=== PATIENT | female | born 1940 | race Caucasian/White ===

== ENCOUNTER 2019-05-28 05:34 | Inpatient (IN) | payer MEDICARE, BC ==
[2019-05-28] MEDS: LACTATED RINGER'S 1,000 ML IV (06:34)
[2019-05-28] MEDS: CEFAZOLIN 2 GM/50 ML (PMX) 50 ML IVPB (07:00)
[2019-05-28] MEDS ORDERED: THROMBIN 5000 UNIT (RECOTHROM) VIAL (07:24)
[2019-05-28] MEDS ORDERED: CEFAZOLIN 1 GM INJ ×2 (07:28→13:38)
[2019-05-28] MEDS ORDERED: PROPOFOL 200 MG INJ (07:45)
[2019-05-28] MEDS ORDERED: ROCURONIUM 50 MG INJ ×2 (07:45→09:37)
[2019-05-28] MEDS ORDERED: MIDAZOLAM 1 MG/ML 2 ML INJ ×2 (07:45→12:33)
[2019-05-28] MEDS ORDERED: DESFLURANE 15 MIN (07:45)
[2019-05-28] MEDS ORDERED: SUCCINYLCHOLINE CHLORIDE 100 MG/5 ML SYG IV (07:45)
[2019-05-28] MEDS ORDERED: LIDOCAINE 1% (MDV) 20 ML INJ ×2 (07:46→16:25)
[2019-05-28] MEDS ORDERED: LABETALOL HCL 20MG INJ (08:14)
[2019-05-28] MEDS ORDERED: FAMOTIDINE 20 MG INJ (08:31)
[2019-05-28] MEDS ORDERED: DEXAMETHASONE 4 MG/ML 5 ML INJ (08:31)
[2019-05-28] MEDS ORDERED: ONDANSETRON 4 MG INJ ×2 (08:31→16:36)
[2019-05-28] MEDS ORDERED: SCOPOLAMINE 1.5 MG PATCH (08:42)
[2019-05-28] MEDS: BUPIVACAINE 0.5%/EPI (SDV) 30 ML INJ (08:45)
[2019-05-28] MEDS: CEFAZOLIN 1 GM INJ (08:45)
[2019-05-28] MEDS: HEPARIN 1000 UNITS/ML 10 ML INJ (09:22)
[2019-05-28] MEDS: GELATIN SIZE 100 SPONGE (09:22)
[2019-05-28] MEDS: THROMBIN 5000 UNIT (RECOTHROM) VIAL ×2 (09:23→12:37)
[2019-05-28] MEDS: POLYMYXIN/BACITRACIN 1L IRRIG (09:23)
[2019-05-28] MEDS: HEMOSTATIC MATRIX SYG ZFS ×4 (09:24→15:58)
[2019-05-28] MEDS ORDERED: morphine 10 MG INJ (10:30)
[2019-05-28] MEDS ORDERED: THROMBIN 20,000 UNIT VIAL (14:07)
[2019-05-28] MEDS ORDERED: SUGAMMADEX SODIUM 200 MG/2 ML VIAL IV (14:10)
[2019-05-28] MEDS ORDERED: HYDROmorphONE 2 MG/ML SYG (14:10)
[2019-05-28] MEDS ORDERED: CA CHLORIDE 10% 10 ML SYRINGE (14:18)
[2019-05-28] MEDS: THROMBIN 20,000 UNIT VIAL (14:22)
[2019-05-28] MEDS ORDERED: FENTAnyl 50 MCG/ML VIAL (14:22)
[2019-05-28 15:04] LABS: IMMEDIATE SPIN CROSSMATCH 1 2
[2019-05-28] MEDS ORDERED: MEPERIDINE 25 MG INJ IV (17:00)
[2019-05-28] MEDS ORDERED: HYDROmorphONE 1 MG/5 ML IV SYRINGE IV ×2 (17:00)
[2019-05-28] MEDS ORDERED: ACETAMINOPHEN 325 MG TAB PO (17:30)
[2019-05-28] MEDS ORDERED: PROCHLORPERAZINE 10 MG TAB PO (17:30)
[2019-05-28] MEDS ORDERED: NACL 0.9% 3 ML SYG IV (17:30)
[2019-05-28] MEDS ORDERED: NALOXONE (0.4 MG/ML) INJ IV (17:30)
[2019-05-28] MEDS ORDERED: HYDROCODONE/APAP (5/325) TAB PO (17:30)
[2019-05-28] MEDS: hydrALAzine 20 MG INJ IV ×2 (17:48→18:18)
[2019-05-28] MEDS: HYDROmorphONE 0.2 MG/ML PCA IV (17:50)
[2019-05-28 18:05] LABS: HEMATOCRIT 39.7 % (37.0-47.0); HEMOGLOBIN 12.8 g/dl (12.0-16.0)
[2019-05-28 18:09] LABS: ADD UMIC YES; UR ASCORBIC ACID NEGATIVE (NEGATIVE); UR BILIRUBIN (Dip) NEGATIVE (NEGATIVE); UR BLOOD (Dip) NEGATIVE (NEGATIVE); UR CLARITY CLEAR (CLEAR); UR COLOR YELLOW (YELLOW); UR GLUCOSE (Dip) NEGATIVE (NEGATIVE); UR KETONES (Dip) NEGATIVE (NEGATIVE); UR LEUKOCYTE ESTERASE (Dip) NEGATIVE Leu/ul (NEGATIVE); UR NITRITE (Dip) NEGATIVE (NEGATIVE); UR RBC 4 /HPF (0-5); UR SPECIFIC GRAVITY (Dip) 1.013 (1.003-1.030); UR TOTAL PROTEIN (Dip) 2+ mg/dl (NEGATIVE); UR UROBILINOGEN (Dip) NEGATIVE (NEGATIVE); UR WBC 3 /HPF (0-5)
[2019-05-28] MEDS: LABETALOL HCL 20MG INJ IV ×3 (18:20→19:19)
[2019-05-28] MEDS: SOD CHLORIDE 0.45% 1,000 ML IV (18:29)
[2019-05-28] MEDS: CEFAZOLIN 1 GM/50 ML (PMX) 50 ML IVPB ×2 (18:29→23:41)
[2019-05-28] MEDS ORDERED: ZOLPIDEM 5 MG TAB PO (18:30)
[2019-05-28] MEDS: ONDANSETRON 4 MG INJ IV (18:58)
[2019-05-28] MEDS: METOCLOPRAMIDE 10 MG INJ IV (19:29)
[2019-05-28] MEDS: HYDROmorphONE 1 MG/5 ML IV SYRINGE IV (19:48)
[2019-05-28 20:14] LABS: ANION GAP 8 (5-13); BLOOD UREA NITROGEN 14 mg/dl (7-20); CALCIUM 8.6 mg/dl (8.4-10.2); CARBON DIOXIDE 21 mmol/L (21-31); CHLORIDE 109 mmol/L (97-110); GLUCOSE 212 mg/dl (70-220); POTASSIUM 4.4 mmol/L (3.5-5.1); SODIUM 138 mmol/L (135-144)
[2019-05-28] MEDS: ATORVASTATIN 40 MG TAB PO (22:35)
[2019-05-28] MEDS: POTASSIUM CHLORIDE (SR) 10 MEQ TAB PO (22:35)
[2019-05-28] MEDS: ACETAMINOPHEN 1000MG/100ML IV 100 ML IVPB (22:38)
[2019-05-29] MEDS: ONDANSETRON 4 MG INJ IV ×3 (00:26→17:04)
[2019-05-29] MEDS: SOD CHLORIDE 0.45% 1,000 ML IV ×2 (02:29→14:12)
[2019-05-29 05:19] LABS: HEMATOCRIT 35.2 % (37.0-47.0); HEMOGLOBIN 11.4 g/dl (12.0-16.0)
[2019-05-29] MEDS: PANTOPRAZOLE (EC) 40 MG TAB PO (05:19)
[2019-05-29] MEDS: CEFAZOLIN 1 GM/50 ML (PMX) 50 ML IVPB ×2 (05:20→11:53)
[2019-05-29 05:41] LABS: ANION GAP 6 (5-13); BLOOD UREA NITROGEN 19 mg/dl (7-20); CALCIUM 8.6 mg/dl (8.4-10.2); CARBON DIOXIDE 26 mmol/L (21-31); CHLORIDE 106 mmol/L (97-110); GLUCOSE 142 mg/dl (70-220); POTASSIUM 4.6 mmol/L (3.5-5.1); SODIUM 138 mmol/L (135-144)
[2019-05-29] MEDS: ACETAMINOPHEN 1000MG/100ML IV 100 ML IVPB ×2 (06:02→14:12)
[2019-05-29] MEDS: ESCITALOPRAM 10 MG TAB PO (09:00)
[2019-05-29] MEDS: MULTIVITAMINS THERAPEUTIC TAB PO (10:08)
[2019-05-29] MEDS: POTASSIUM CHLORIDE (SR) 10 MEQ TAB PO ×2 (10:09→20:32)
[2019-05-29] MEDS: HYDROCHLOROTHIAZIDE 25 MG TAB PO (10:10)
[2019-05-29] MEDS: MECLIZINE 25 MG TAB PO (11:54)
[2019-05-29] MEDS ORDERED: DIMENHYDRINATE 50 MG TAB PO ×3 (12:30→21:00)
[2019-05-29] MEDS ORDERED: MECLIZINE 25 MG TAB PO (14:30)
[2019-05-29] MEDS: HYDROCODONE/APAP (5/325) TAB PO ×2 (15:04→16:51)
[2019-05-29] MEDS ORDERED: DIMENHYDRINATE 50 MG PO (16:30)
[2019-05-29] MEDS ORDERED: OXYCODONE/ACETAMINOPHEN (5/325) TAB PO (18:30)
[2019-05-29] MEDS: HYDROmorphONE 0.5 MG/0.5 ML SYG IV ×2 (18:47→22:39)
[2019-05-29] MEDS: OXYCODONE/ACETAMINOPHEN (5/325) TAB PO (19:46)
[2019-05-29] MEDS: ATORVASTATIN 40 MG TAB PO (20:32)
[2019-05-29] MEDS ORDERED: DRAMAMINE PO (21:00)
[2019-05-30] MEDS: ONDANSETRON 4 MG INJ IV ×3 (01:00→15:58)
[2019-05-30] MEDS: OXYCODONE/ACETAMINOPHEN (5/325) TAB PO ×2 (01:00→05:42)
[2019-05-30] MEDS: SOD CHLORIDE 0.45% 1,000 ML IV ×5 (01:00→23:58)
[2019-05-30] MEDS: AL HYDROX/MG HYDROX/SIMETH 30 ML CUP PO (01:02)
[2019-05-30] MEDS: traZODone 50 MG TAB PO (02:08)
[2019-05-30] MEDS: HYDROmorphONE 0.5 MG/0.5 ML SYG IV ×3 (03:21→20:13)
[2019-05-30 05:19] LABS: HEMATOCRIT 26.8 % (37.0-47.0); HEMOGLOBIN 8.9 g/dl (12.0-16.0)
[2019-05-30] MEDS: PANTOPRAZOLE (EC) 40 MG TAB PO (05:42)
[2019-05-30] MEDS: DIMENHYDRINATE 50 MG PO ×3 (06:45→18:35)
[2019-05-30] MEDS ORDERED: DIMENHYDRINATE 50 MG TAB PO (08:30)
[2019-05-30] MEDS: HYDROCODONE/APAP (5/325) TAB PO ×2 (09:04→15:58)
[2019-05-30] MEDS: ESCITALOPRAM 10 MG TAB PO (09:27)
[2019-05-30] MEDS: HYDROCHLOROTHIAZIDE 25 MG TAB PO (09:28)
[2019-05-30] MEDS: MULTIVITAMINS THERAPEUTIC TAB PO (09:28)
[2019-05-30] MEDS: POTASSIUM CHLORIDE (SR) 10 MEQ TAB PO ×2 (09:28→21:29)
[2019-05-30] MEDS: AMLODIPINE 5 MG TAB PO (21:28)
[2019-05-30] MEDS: METHYLNALTREXONE 12 MG/0.6 ML VIAL SC (21:28)
[2019-05-30] MEDS: ATORVASTATIN 40 MG TAB PO (21:28)
[2019-05-31] MEDS: HYDROCODONE/APAP (5/325) TAB PO ×5 (02:47→23:57)
[2019-05-31] MEDS: PANTOPRAZOLE (EC) 40 MG TAB PO (05:20)
[2019-05-31 05:52] LABS: ADD MAN DIFF? NO
[2019-05-31 06:01] LABS: BASOPHILS % 0.1 % (0.0-2.0); EOSINOPHILS % 0.1 % (0.0-7.0); HEMATOCRIT 27.3 % (37.0-47.0); LYMPHOCYTES # 1.2 10^3/ul (0.8-2.9); LYMPHOCYTES % 8.3 % (15.0-51.0); MEAN CORPUSCULAR HEMOGLOBIN 29.9 pg (29.0-33.0); MEAN CORPUSCULAR VOLUME 90.7 fl (82.0-101.0); MEAN PLATELET VOLUME 9.9 fl (7.4-10.4); MONOCYTE # 1.2 10^3/ul (0.3-0.9); NEUTROPHIL # 12.3 10^3/ul (1.6-7.5); NEUTROPHILS % 82.4 % (39.0-77.0); PLATELET COUNT 175 10^3/UL (140-415); RED BLOOD COUNT 3.01 10^6/ul (4.20-5.40); RED CELL DISTRIBUTION WIDTH 13.5 % (11.5-14.5)
[2019-05-31 06:01] LABS: WHITE BLOOD COUNT 14.9 10^3/ul (4.8-10.8)
[2019-05-31] MEDS: METOCLOPRAMIDE 10 MG INJ IV ×2 (07:18→13:32)
[2019-05-31] MEDS: AL HYDROX/MG HYDROX/SIMETH 30 ML CUP PO (07:40)
[2019-05-31] MEDS: ESCITALOPRAM 10 MG TAB PO (07:40)
[2019-05-31] MEDS: MULTIVITAMINS THERAPEUTIC TAB PO (07:41)
[2019-05-31] MEDS: HYDROCHLOROTHIAZIDE 25 MG TAB PO (07:41)
[2019-05-31] MEDS: POTASSIUM CHLORIDE (SR) 10 MEQ TAB PO ×2 (07:41→20:47)
[2019-05-31] MEDS: LOSARTAN 50 MG TAB PO (07:45)
[2019-05-31] MEDS: SOD CHLORIDE 0.45% 1,000 ML IV (13:39)
[2019-05-31] MEDS: ATORVASTATIN 40 MG TAB PO (20:46)
[2019-05-31] MEDS: AMLODIPINE 5 MG TAB PO (20:47)
[2019-06-01] MEDS: HYDROCODONE/APAP (5/325) TAB PO ×4 (04:01→18:03)
[2019-06-01] MEDS: PANTOPRAZOLE (EC) 40 MG TAB PO (05:26)
[2019-06-01] MEDS: ESCITALOPRAM 10 MG TAB PO ×2 (08:46→09:00)
[2019-06-01] MEDS: MULTIVITAMINS THERAPEUTIC TAB PO (08:47)
[2019-06-01] MEDS: HYDROCHLOROTHIAZIDE 25 MG TAB PO (08:47)
[2019-06-01] MEDS: LOSARTAN 50 MG TAB PO ×2 (08:48→20:06)
[2019-06-01] MEDS: POTASSIUM CHLORIDE (SR) 10 MEQ TAB PO ×2 (08:48→20:05)
[2019-06-01] MEDS: AL HYDROX/MG HYDROX/SIMETH 30 ML CUP PO (09:01)
[2019-06-01] MEDS: METOCLOPRAMIDE 10 MG INJ IV (09:39)
[2019-06-01] MEDS: DEXAMETHASONE 10 MG/ML 1 ML INJ IV (09:39)
[2019-06-01 09:41] LABS: ADD MAN DIFF? NO
[2019-06-01 09:49] LABS: WHITE BLOOD COUNT 13.3 10^3/ul (4.8-10.8)
[2019-06-01 09:49] LABS: BASOPHILS % 0.2 % (0.0-2.0); EOSINOPHILS # 0.2 10^3/ul (0.0-0.5); EOSINOPHILS % 1.5 % (0.0-7.0); HEMATOCRIT 26.4 % (37.0-47.0); HEMOGLOBIN 8.7 g/dl (12.0-16.0); LYMPHOCYTES % 15.2 % (15.0-51.0); MEAN CORPUSCULAR HEMOGLOBIN 30.4 pg (29.0-33.0); MEAN CORPUSCULAR VOLUME 92.3 fl (82.0-101.0); MEAN PLATELET VOLUME 9.6 fl (7.4-10.4); MONOCYTES % 7.8 % (0.0-11.0); NEUTROPHIL # 9.8 10^3/ul (1.6-7.5); NEUTROPHILS % 73.9 % (39.0-77.0); PLATELET COUNT 237 10^3/UL (140-415); RED BLOOD COUNT 2.86 10^6/ul (4.20-5.40); RED CELL DISTRIBUTION WIDTH 13.6 % (11.5-14.5)
[2019-06-01 10:16] LABS: ANION GAP 0 (5-13); BLOOD UREA NITROGEN 14 mg/dl (7-20); CALCIUM 8.3 mg/dl (8.4-10.2); CARBON DIOXIDE 38 mmol/L (21-31); CHLORIDE 96 mmol/L (97-110); CREATININE 0.51 mg/dl (0.44-1.00); GLUCOSE 151 mg/dl (70-220); SODIUM 134 mmol/L (135-144)
[2019-06-01] MEDS: POTASSIUM CHLORIDE (SR) 20 MEQ TAB PO (11:20)
[2019-06-01] MEDS ORDERED: BISACODYL 10 MG SUPP PR (18:00)
[2019-06-01] MEDS: ATORVASTATIN 40 MG TAB PO (20:05)
[2019-06-01] MEDS: METOPROLOL 25 MG TAB PO (20:05)
[2019-06-01] MEDS: AMLODIPINE 5 MG TAB PO (20:06)
[2019-06-01] MEDS: METHYLNALTREXONE 12 MG/0.6 ML VIAL SC (20:07)
[2019-06-02] MEDS ORDERED: ESCITALOPRAM 10 MG TAB PO (09:00)
== END 2019-06-01 21:05 | DRG 455 ==
LOC: REC 05:34 → MS1 21:20
PROC: 0SG00A0 Fusion of Lumbar Vertebral Joint with Interbody Fusion Device, Anterior Approach, Anterior Column, Open Approach (ICD-10-PCS; principal; 2019-05-28 07:30)
PROC: 0SG00K1 Fusion of Lumbar Vertebral Joint with Nonautologous Tissue Substitute, Posterior Approach, Posterior Column, Open Approach (ICD-10-PCS; 2019-05-28 07:30)
PROC: 0SG30A0 Fusion of Lumbosacral Joint with Interbody Fusion Device, Anterior Approach, Anterior Column, Open Approach (ICD-10-PCS; 2019-05-28 07:30)
PROC: 0SG30K1 Fusion of Lumbosacral Joint with Nonautologous Tissue Substitute, Posterior Approach, Posterior Column, Open Approach (ICD-10-PCS; 2019-05-28 07:30)
PROC: 0ST20ZZ Resection of Lumbar Vertebral Disc, Open Approach (ICD-10-PCS; 2019-05-28 07:30)
PROC: 0ST40ZZ Resection of Lumbosacral Disc, Open Approach (ICD-10-PCS; 2019-05-28 07:30)
PROC: 01NB0ZZ Release Lumbar Nerve, Open Approach (ICD-10-PCS; 2019-05-28 07:30)
PROC: 0SB30ZZ Excision of Lumbosacral Joint, Open Approach (ICD-10-PCS; 2019-05-28 07:30)
DX: M48.062 Spinal stenosis, lumbar region with neurogenic claudication (principal); D64.9 Anemia, unspecified; R42 Dizziness and giddiness; E78.5 Hyperlipidemia, unspecified; K21.9 Gastro-esophageal reflux disease without esophagitis; M43.17 Spondylolisthesis, lumbosacral region; M54.17 Radiculopathy, lumbosacral region; E78.00 Pure hypercholesterolemia, unspecified; F32.9 Major depressive disorder, single episode, unspecified; G47.00 Insomnia, unspecified; G89.18 Other acute postprocedural pain; E83.9 Disorder of mineral metabolism, unspecified; K59.03 Drug induced constipation
CPT/HCPCS: 36430; 72110; 72131; 80048; 81001; 85014; 85018; 85025; 86850; 86900; 86901; 86920; 87086; 88304; 97110; 97116; 97163; 97530

== ENCOUNTER 2019-06-01 21:25 | Inpatient (IN) | payer MEDICARE, BC ==
[2019-06-01] MEDS: HYDROCODONE/APAP (5/325) TAB PO (22:27)
[2019-06-01] MEDS ORDERED: METOCLOPRAMIDE 10 MG INJ IV (22:30)
[2019-06-01] MEDS ORDERED: ACETAMINOPHEN 325 MG TAB PO (22:30)
[2019-06-01] MEDS ORDERED: NALOXONE (0.4 MG/ML) INJ IV (22:30)
[2019-06-01] MEDS: METHYLNALTREXONE 12 MG/0.6 ML VIAL SC (22:30)
[2019-06-01] MEDS ORDERED: AL HYDROX/MG HYDROX/SIMETH 30 ML CUP PO (22:30)
[2019-06-01] MEDS ORDERED: PROCHLORPERAZINE 10 MG TAB PO (22:30)
[2019-06-01] MEDS ORDERED: traZODone 50 MG TAB PO (22:30)
[2019-06-01] MEDS ORDERED: DIMENHYDRINATE 50 MG TAB PO (22:30)
[2019-06-01] MEDS ORDERED: PENDING SANTYL ORDER FOR WOUND CARE XX (23:00)
[2019-06-01] MEDS ORDERED: NACL 0.9% 3 ML SYG IV ×2 (23:00)
[2019-06-01] MEDS ORDERED: MAGNESIUM HYDROXIDE 30ML CUP PO (23:00)
[2019-06-01 23:41] LABS: ADD UMIC YES; UR ASCORBIC ACID 20 mg/dL (NEGATIVE); UR BILIRUBIN (Dip) NEGATIVE (NEGATIVE); UR BLOOD (Dip) 2+ mg/dL (NEGATIVE); UR CLARITY CLEAR (CLEAR); UR COLOR STRAW (YELLOW); UR GLUCOSE (Dip) 3+ mg/dL (NEGATIVE); UR KETONES (Dip) NEGATIVE (NEGATIVE); UR LEUKOCYTE ESTERASE (Dip) NEGATIVE Leu/ul (NEGATIVE); UR MUCUS FEW /HPF (NONE SEEN); UR NITRITE (Dip) NEGATIVE (NEGATIVE); UR RBC 12 /HPF (0-5); UR SPECIFIC GRAVITY (Dip) 1.015 (1.003-1.030); UR TOTAL PROTEIN (Dip) NEGATIVE (NEGATIVE); UR UROBILINOGEN (Dip) NEGATIVE (NEGATIVE); UR WBC 2 /HPF (0-5)
[2019-06-02] MEDS: HYDROCODONE/APAP (5/325) TAB PO ×5 (04:08→21:17)
[2019-06-02] MEDS: PANTOPRAZOLE (EC) 40 MG TAB PO (06:33)
[2019-06-02] MEDS: MULTIVITAMINS THERAPEUTIC TAB PO (08:16)
[2019-06-02] MEDS: DOCUSATE SODIUM 100 MG CAP PO ×2 (08:16→20:25)
[2019-06-02] MEDS: LOSARTAN 50 MG TAB PO (08:17)
[2019-06-02] MEDS: POTASSIUM CHLORIDE (SR) 10 MEQ TAB PO ×2 (08:17→20:24)
[2019-06-02] MEDS: ESCITALOPRAM 10 MG TAB PO (08:18)
[2019-06-02] MEDS: HYDROCHLOROTHIAZIDE 25 MG TAB PO (08:23)
[2019-06-02 08:51] LABS: ADD MAN DIFF? NO
[2019-06-02 08:55] LABS: WHITE BLOOD COUNT 12.6 10^3/ul (4.8-10.8)
[2019-06-02 08:55] LABS: BASOPHILS % 0.2 % (0.0-2.0); HEMATOCRIT 25.4 % (37.0-47.0); HEMOGLOBIN 8.3 g/dl (12.0-16.0); LYMPHOCYTES # 1.4 10^3/ul (0.8-2.9); LYMPHOCYTES % 10.9 % (15.0-51.0); MEAN CORPUSCULAR HEMOGLOBIN 30.4 pg (29.0-33.0); MEAN CORPUSCULAR HGB CONC 32.7 g/dl (32.0-37.0); MEAN PLATELET VOLUME 9.8 fl (7.4-10.4); NEUTROPHIL # 9.7 10^3/ul (1.6-7.5); NEUTROPHILS % 76.7 % (39.0-77.0); NUCLEATED RED BLOOD CELLS% 0.2 /100WBC (0.0-0.0); PLATELET COUNT 278 10^3/UL (140-415); RED BLOOD COUNT 2.73 10^6/ul (4.20-5.40); RED CELL DISTRIBUTION WIDTH 13.3 % (11.5-14.5)
[2019-06-02] MEDS ORDERED: AMLODIPINE 5 MG TAB PO (09:00)
[2019-06-02 09:31] LABS: ALANINE AMINOTRANSFERASE 52 IU/L (13-69); ALBUMIN 2.9 g/dl (3.3-4.9); ALBUMIN/GLOBULIN RATIO 1.16; ALKALINE PHOSPHATASE 61 IU/L (42-121); ANION GAP 2 (5-13); ASPARTATE AMINO TRANSFERASE 43 IU/L (15-46); BILIRUBIN,INDIRECT 0.2 mg/dl (0-1.1); BILIRUBIN,TOTAL 0.2 mg/dl (0.2-1.3); BLOOD UREA NITROGEN 19 mg/dl (7-20); CALCIUM 8.5 mg/dl (8.4-10.2); CARBON DIOXIDE 38 mmol/L (21-31); CHLORIDE 96 mmol/L (97-110); CREATININE 0.47 mg/dl (0.44-1.00); GLUCOSE 141 mg/dl (70-220); POTASSIUM 4.2 mmol/L (3.5-5.1); SODIUM 136 mmol/L (135-144); TOTAL PROTEIN 5.4 g/dl (6.1-8.1)
[2019-06-02] MEDS: LACTULOSE 30ML CUP PO (12:27)
[2019-06-02] MEDS: NA PHOSPHATE/BIPHOS 133 ML ENEMA PR (15:57)
[2019-06-02] MEDS: ATORVASTATIN 40 MG TAB PO (20:24)
[2019-06-02] MEDS: ZOLPIDEM 5 MG TAB PO (20:24)
[2019-06-02] MEDS: AMLODIPINE 5 MG TAB PO (20:25)
[2019-06-02] MEDS: SENNA TAB PO (20:25)
[2019-06-03] MEDS: HYDROCODONE/APAP (5/325) TAB PO ×6 (01:25→22:53)
[2019-06-03] MEDS: PANTOPRAZOLE (EC) 40 MG TAB PO (06:03)
[2019-06-03] MEDS: ESCITALOPRAM 10 MG TAB PO (09:06)
[2019-06-03] MEDS: POTASSIUM CHLORIDE (SR) 10 MEQ TAB PO ×2 (09:06→20:34)
[2019-06-03] MEDS: MULTIVITAMINS THERAPEUTIC TAB PO (09:06)
[2019-06-03] MEDS: LOSARTAN 50 MG TAB PO (09:06)
[2019-06-03] MEDS: DOCUSATE SODIUM 100 MG CAP PO ×2 (09:06→20:32)
[2019-06-03] MEDS: HYDROCHLOROTHIAZIDE 25 MG TAB PO (09:06)
[2019-06-03] MEDS: MECLIZINE 25 MG TAB PO ×2 (14:53→20:33)
[2019-06-03 14:55] LABS: IRON 41 ug/dl (35-150)
[2019-06-03 15:05] LABS: % IRON SATURATION 17 % SAT (22-52); TOTAL IRON BINDING CAPACITY 238 ug/dl (241-421)
[2019-06-03] MEDS: SENNA TAB PO (20:32)
[2019-06-03] MEDS: ATORVASTATIN 40 MG TAB PO (20:32)
[2019-06-03] MEDS: AMLODIPINE 5 MG TAB PO (20:34)
[2019-06-03] MEDS: HYDROmorphONE 0.5 MG/0.5 ML SYG IV (21:03)
[2019-06-03] MEDS: METHYLNALTREXONE 12 MG/0.6 ML VIAL SC (22:16)
[2019-06-04] MEDS: HYDROCODONE/APAP (5/325) TAB PO ×5 (02:48→21:36)
[2019-06-04] MEDS: HYDROmorphONE 0.5 MG/0.5 ML SYG IV ×2 (03:53→19:45)
[2019-06-04] MEDS: PANTOPRAZOLE (EC) 40 MG TAB PO (06:18)
[2019-06-04] MEDS ORDERED: ESCITALOPRAM 10 MG TAB PO (09:00)
[2019-06-04] MEDS: MECLIZINE 25 MG TAB PO ×3 (09:02→20:58)
[2019-06-04] MEDS: DOCUSATE SODIUM 100 MG CAP PO ×2 (09:02→20:57)
[2019-06-04] MEDS: ESCITALOPRAM 10 MG TAB PO (09:03)
[2019-06-04] MEDS: POTASSIUM CHLORIDE (SR) 10 MEQ TAB PO ×2 (09:04→20:57)
[2019-06-04] MEDS: AMLODIPINE 5 MG TAB PO ×2 (09:04→20:58)
[2019-06-04] MEDS: MULTIVITAMINS THERAPEUTIC TAB PO (09:04)
[2019-06-04] MEDS: LOSARTAN 50 MG TAB PO (09:04)
[2019-06-04] MEDS: METOPROLOL 25 MG TAB PO ×2 (09:04→20:59)
[2019-06-04] MEDS: HYDROCHLOROTHIAZIDE 25 MG TAB PO (09:05)
[2019-06-04] MEDS: SENNA TAB PO (20:57)
[2019-06-04] MEDS: ATORVASTATIN 40 MG TAB PO (20:57)
[2019-06-04] MEDS: traZODone 50 MG TAB PO (21:35)
[2019-06-05] MEDS: HYDROCODONE/APAP (5/325) TAB PO ×4 (03:35→21:03)
[2019-06-05] MEDS: PANTOPRAZOLE (EC) 40 MG TAB PO (06:10)
[2019-06-05] MEDS: MECLIZINE 25 MG TAB PO ×2 (08:47→14:00)
[2019-06-05] MEDS: MULTIVITAMINS THERAPEUTIC TAB PO (08:48)
[2019-06-05] MEDS: POTASSIUM CHLORIDE (SR) 10 MEQ TAB PO ×2 (08:49→21:01)
[2019-06-05] MEDS: DOCUSATE SODIUM 100 MG CAP PO ×2 (08:50→21:01)
[2019-06-05] MEDS: ESCITALOPRAM 10 MG TAB PO (08:50)
[2019-06-05] MEDS: METOPROLOL 25 MG TAB PO ×2 (09:01→21:03)
[2019-06-05] MEDS: AMLODIPINE 5 MG TAB PO (09:01)
[2019-06-05] MEDS: LOSARTAN 50 MG TAB PO (09:01)
[2019-06-05] MEDS: HYDROCHLOROTHIAZIDE 25 MG TAB PO (09:01)
[2019-06-05] MEDS: LACTULOSE 30ML CUP PO (14:00)
[2019-06-05] MEDS: RANITIDINE 150 MG TAB PO (16:01)
[2019-06-05] MEDS: ATORVASTATIN 40 MG TAB PO (21:01)
[2019-06-05] MEDS: SENNA TAB PO (21:01)
[2019-06-05] MEDS: traZODone 50 MG TAB PO (21:20)
[2019-06-05] MEDS: METHYLNALTREXONE 12 MG/0.6 ML VIAL SC (22:06)
[2019-06-05] MEDS: HYDROmorphONE 0.5 MG/0.5 ML SYG IV (23:16)
[2019-06-06] MEDS: HYDROCODONE/APAP (5/325) TAB PO ×4 (02:34→21:37)
[2019-06-06] MEDS: PANTOPRAZOLE (EC) 40 MG TAB PO (05:56)
[2019-06-06] MEDS: HYDROmorphONE 0.5 MG/0.5 ML SYG IV (06:35)
[2019-06-06] MEDS: AMLODIPINE 5 MG TAB PO ×2 (09:48→21:39)
[2019-06-06] MEDS: ESCITALOPRAM 10 MG TAB PO (09:48)
[2019-06-06] MEDS: DOCUSATE SODIUM 100 MG CAP PO ×2 (09:48→21:33)
[2019-06-06] MEDS: MULTIVITAMINS THERAPEUTIC TAB PO (09:48)
[2019-06-06] MEDS: HYDROCHLOROTHIAZIDE 25 MG TAB PO (09:49)
[2019-06-06] MEDS: LOSARTAN 50 MG TAB PO (09:49)
[2019-06-06] MEDS: BACLOFEN 10 MG TAB PO ×2 (09:49→12:31)
[2019-06-06] MEDS: POTASSIUM CHLORIDE (SR) 10 MEQ TAB PO ×2 (09:49→21:33)
[2019-06-06 11:52] LABS: HEMATOCRIT 31.2 % (37.0-47.0); HEMOGLOBIN 10.1 g/dl (12.0-16.0)
[2019-06-06] MEDS: ATORVASTATIN 40 MG TAB PO (21:33)
[2019-06-06] MEDS: SENNA TAB PO (21:33)
[2019-06-06] MEDS: traZODone 50 MG TAB PO (21:40)
[2019-06-07] MEDS: HYDROCODONE/APAP (5/325) TAB PO ×5 (02:38→20:56)
[2019-06-07] MEDS: PANTOPRAZOLE (EC) 40 MG TAB PO (06:52)
[2019-06-07] MEDS: LOSARTAN 50 MG TAB PO (08:19)
[2019-06-07] MEDS: ESCITALOPRAM 10 MG TAB PO (08:19)
[2019-06-07] MEDS: HYDROCHLOROTHIAZIDE 25 MG TAB PO (08:20)
[2019-06-07] MEDS: MULTIVITAMINS THERAPEUTIC TAB PO (08:20)
[2019-06-07] MEDS: AMLODIPINE 5 MG TAB PO ×2 (08:20→20:50)
[2019-06-07] MEDS: POTASSIUM CHLORIDE (SR) 10 MEQ TAB PO ×2 (08:20→20:49)
[2019-06-07] MEDS: DOCUSATE SODIUM 100 MG CAP PO ×2 (08:20→20:49)
[2019-06-07] MEDS: ONDANSETRON 4 MG INJ IV (12:53)
[2019-06-07] MEDS: ATORVASTATIN 40 MG TAB PO (20:49)
[2019-06-07] MEDS: SENNA TAB PO (20:54)
[2019-06-07] MEDS: HYDROmorphONE 2 MG TAB PO (22:07)
[2019-06-07] MEDS: METHYLNALTREXONE 12 MG/0.6 ML VIAL SC (22:08)
[2019-06-07] MEDS: HYDROmorphONE 0.5 MG/0.5 ML SYG IV (23:49)
[2019-06-08] MEDS: traZODone 50 MG TAB PO ×2 (02:18→20:13)
[2019-06-08] MEDS: MECLIZINE 25 MG TAB PO ×2 (02:18→12:36)
[2019-06-08] MEDS: HYDROCODONE/APAP (5/325) TAB PO ×2 (02:20→20:15)
[2019-06-08] MEDS: HYDROmorphONE 0.5 MG/0.5 ML SYG IV ×4 (05:01→19:28)
[2019-06-08] MEDS: PANTOPRAZOLE (EC) 40 MG TAB PO (06:42)
[2019-06-08] MEDS: AMLODIPINE 5 MG TAB PO ×2 (09:00→20:16)
[2019-06-08] MEDS: LOSARTAN 50 MG TAB PO (09:00)
[2019-06-08] MEDS: DOCUSATE SODIUM 100 MG CAP PO ×2 (09:14→20:08)
[2019-06-08] MEDS: MULTIVITAMINS THERAPEUTIC TAB PO (09:14)
[2019-06-08] MEDS: ESCITALOPRAM 10 MG TAB PO (09:14)
[2019-06-08] MEDS: POTASSIUM CHLORIDE (SR) 10 MEQ TAB PO ×2 (09:15→20:13)
[2019-06-08] MEDS: HYDROCHLOROTHIAZIDE 25 MG TAB PO (09:18)
[2019-06-08] MEDS: BISACODYL 10 MG SUPP PR (18:07)
[2019-06-08] MEDS: ATORVASTATIN 40 MG TAB PO (20:08)
[2019-06-08] MEDS: SENNA TAB PO (20:54)
[2019-06-09] MEDS: HYDROmorphONE 0.5 MG/0.5 ML SYG IV ×5 (00:22→20:39)
[2019-06-09] MEDS: HYDROCODONE/APAP (5/325) TAB PO ×4 (03:19→18:20)
[2019-06-09] MEDS: PANTOPRAZOLE (EC) 40 MG TAB PO (06:00)
[2019-06-09] MEDS: DOCUSATE SODIUM 100 MG CAP PO ×2 (07:50→20:38)
[2019-06-09] MEDS: MULTIVITAMINS THERAPEUTIC TAB PO (07:51)
[2019-06-09] MEDS: HYDROCHLOROTHIAZIDE 25 MG TAB PO (07:51)
[2019-06-09] MEDS: AMLODIPINE 5 MG TAB PO ×2 (07:52→20:37)
[2019-06-09] MEDS: METHYLNALTREXONE 12 MG/0.6 ML VIAL SC (07:54)
[2019-06-09] MEDS: POTASSIUM CHLORIDE (SR) 10 MEQ TAB PO ×2 (08:04→20:36)
[2019-06-09] MEDS: LACTULOSE 30ML CUP PO (08:04)
[2019-06-09] MEDS: ESCITALOPRAM 10 MG TAB PO (08:04)
[2019-06-09] MEDS: LOSARTAN 50 MG TAB PO (08:05)
[2019-06-09] MEDS: ONDANSETRON 4 MG INJ IV (10:58)
[2019-06-09] MEDS: ACYCLOVIR 800 MG TAB PO ×3 (15:47→20:38)
[2019-06-09] MEDS: ATORVASTATIN 40 MG TAB PO (20:37)
[2019-06-09] MEDS: SENNA TAB PO (20:38)
[2019-06-09] MEDS: traZODone 50 MG TAB PO (20:38)
[2019-06-10] MEDS: HYDROmorphONE 0.5 MG/0.5 ML SYG IV ×5 (00:45→22:17)
[2019-06-10] MEDS: HYDROCODONE/APAP (5/325) TAB PO ×5 (01:53→20:43)
[2019-06-10] MEDS: PANTOPRAZOLE (EC) 40 MG TAB PO (07:13)
[2019-06-10] MEDS: DOCUSATE SODIUM 100 MG CAP PO ×2 (08:44→20:03)
[2019-06-10] MEDS: AMLODIPINE 5 MG TAB PO ×2 (08:45→20:02)
[2019-06-10] MEDS: HYDROCHLOROTHIAZIDE 25 MG TAB PO (08:45)
[2019-06-10] MEDS: MULTIVITAMINS THERAPEUTIC TAB PO (08:47)
[2019-06-10] MEDS: ESCITALOPRAM 10 MG TAB PO (08:47)
[2019-06-10] MEDS: POTASSIUM CHLORIDE (SR) 10 MEQ TAB PO ×2 (08:49→20:03)
[2019-06-10] MEDS: METHYLNALTREXONE 12 MG/0.6 ML VIAL SC (08:51)
[2019-06-10] MEDS: LOSARTAN 50 MG TAB PO (08:52)
[2019-06-10] MEDS: LACTULOSE 30ML CUP PO (08:52)
[2019-06-10] MEDS: ACYCLOVIR 800 MG TAB PO ×5 (08:54→20:02)
[2019-06-10] MEDS: traZODone 50 MG TAB PO (19:52)
[2019-06-10] MEDS: MECLIZINE 25 MG TAB PO (19:56)
[2019-06-10] MEDS: ATORVASTATIN 40 MG TAB PO (20:03)
[2019-06-10] MEDS: SENNA TAB PO (20:03)
[2019-06-11] MEDS: HYDROmorphONE 0.5 MG/0.5 ML SYG IV ×5 (02:15→22:13)
[2019-06-11] MEDS: HYDROCODONE/APAP (5/325) TAB PO ×4 (02:55→19:28)
[2019-06-11] MEDS: PANTOPRAZOLE (EC) 40 MG TAB PO (06:20)
[2019-06-11 07:31] LABS: HEMATOCRIT 29.9 % (37.0-47.0); HEMOGLOBIN 9.6 g/dl (12.0-16.0)
[2019-06-11] MEDS: LACTULOSE 30ML CUP PO (08:43)
[2019-06-11] MEDS: ESCITALOPRAM 10 MG TAB PO (08:43)
[2019-06-11] MEDS: METHYLNALTREXONE 12 MG/0.6 ML VIAL SC ×2 (08:43→08:57)
[2019-06-11] MEDS: ACYCLOVIR 800 MG TAB PO ×5 (08:43→22:26)
[2019-06-11] MEDS: HYDROCHLOROTHIAZIDE 25 MG TAB PO (08:44)
[2019-06-11] MEDS: LOSARTAN 50 MG TAB PO (08:44)
[2019-06-11] MEDS: AMLODIPINE 5 MG TAB PO ×2 (08:45→22:14)
[2019-06-11] MEDS: POTASSIUM CHLORIDE (SR) 10 MEQ TAB PO ×2 (08:45→22:13)
[2019-06-11] MEDS: DOCUSATE SODIUM 100 MG CAP PO ×2 (08:45→22:13)
[2019-06-11] MEDS: MULTIVITAMINS THERAPEUTIC TAB PO (08:46)
[2019-06-11] MEDS: GABAPENTIN 100 MG CAP PO ×2 (12:07→22:13)
[2019-06-11] MEDS: IBUPROFEN 200 MG TAB PO ×2 (12:08→16:01)
[2019-06-11] MEDS: traZODone 50 MG TAB PO (19:33)
[2019-06-11] MEDS: ATORVASTATIN 40 MG TAB PO (22:13)
[2019-06-11] MEDS: SENNA TAB PO (22:14)
[2019-06-11] MEDS: LOSARTAN 25 MG TAB PO (22:33)
[2019-06-12] MEDS: HYDROCODONE/APAP (5/325) TAB PO ×6 (00:24→23:37)
[2019-06-12] MEDS: HYDROmorphONE 0.5 MG/0.5 ML SYG IV ×5 (04:13→22:06)
[2019-06-12] MEDS: PANTOPRAZOLE (EC) 40 MG TAB PO (05:15)
[2019-06-12] MEDS: IBUPROFEN 200 MG TAB PO ×3 (05:18→21:14)
[2019-06-12] MEDS: METHYLNALTREXONE 12 MG/0.6 ML VIAL SC ×2 (08:14→09:40)
[2019-06-12] MEDS: AMLODIPINE 5 MG TAB PO ×2 (08:55→21:09)
[2019-06-12] MEDS: LACTULOSE 30ML CUP PO (08:55)
[2019-06-12] MEDS: HYDROCHLOROTHIAZIDE 25 MG TAB PO (08:56)
[2019-06-12] MEDS: POTASSIUM CHLORIDE (SR) 10 MEQ TAB PO ×2 (08:56→21:08)
[2019-06-12] MEDS: LOSARTAN 25 MG TAB PO ×2 (08:56→21:09)
[2019-06-12] MEDS: GABAPENTIN 100 MG CAP PO ×2 (08:56→21:08)
[2019-06-12] MEDS: ESCITALOPRAM 10 MG TAB PO (08:56)
[2019-06-12] MEDS: MULTIVITAMINS THERAPEUTIC TAB PO (08:56)
[2019-06-12] MEDS: ACYCLOVIR 800 MG TAB PO ×5 (08:57→21:14)
[2019-06-12] MEDS: DOCUSATE SODIUM 100 MG CAP PO ×2 (08:57→21:08)
[2019-06-12] MEDS: MECLIZINE 25 MG TAB PO (14:38)
[2019-06-12] MEDS: SENNA TAB PO (21:08)
[2019-06-12] MEDS: ATORVASTATIN 40 MG TAB PO (21:08)
[2019-06-12] MEDS: traZODone 50 MG TAB PO (21:10)
[2019-06-13] MEDS: HYDROmorphONE 0.5 MG/0.5 ML SYG IV ×2 (01:53→06:35)
[2019-06-13] MEDS: HYDROCODONE/APAP (5/325) TAB PO ×4 (05:49→20:47)
[2019-06-13] MEDS: PANTOPRAZOLE (EC) 40 MG TAB PO (05:50)
[2019-06-13] MEDS: LACTULOSE 30ML CUP PO (08:05)
[2019-06-13] MEDS: METHYLNALTREXONE 12 MG/0.6 ML VIAL SC (08:05)
[2019-06-13] MEDS: LOSARTAN 25 MG TAB PO ×2 (08:06→20:50)
[2019-06-13] MEDS: ESCITALOPRAM 10 MG TAB PO (08:06)
[2019-06-13] MEDS: DOCUSATE SODIUM 100 MG CAP PO ×2 (08:06→20:47)
[2019-06-13] MEDS: HYDROCHLOROTHIAZIDE 25 MG TAB PO (08:06)
[2019-06-13] MEDS: AMLODIPINE 5 MG TAB PO ×2 (08:07→20:49)
[2019-06-13] MEDS: ACYCLOVIR 800 MG TAB PO ×5 (08:07→20:51)
[2019-06-13] MEDS: POTASSIUM CHLORIDE (SR) 10 MEQ TAB PO ×2 (08:07→20:48)
[2019-06-13] MEDS: MULTIVITAMINS THERAPEUTIC TAB PO (08:08)
[2019-06-13] MEDS: GABAPENTIN 100 MG CAP PO ×2 (08:08→20:47)
[2019-06-13] MEDS: IBUPROFEN 200 MG TAB PO ×2 (08:08→19:41)
[2019-06-13] MEDS: MECLIZINE 25 MG TAB PO ×2 (08:12→17:54)
[2019-06-13] MEDS: PSYLLIUM 28% PACKET PO (10:00)
[2019-06-13] MEDS: HYDROmorphONE 2 MG TAB PO ×2 (11:18→18:02)
[2019-06-13] MEDS: traZODone 50 MG TAB PO (20:48)
[2019-06-13] MEDS: SENNA TAB PO (20:48)
[2019-06-13] MEDS: ATORVASTATIN 40 MG TAB PO (20:49)
[2019-06-14] MEDS: HYDROmorphONE 2 MG TAB PO ×4 (00:49→19:08)
[2019-06-14] MEDS: HYDROCODONE/APAP (5/325) TAB PO ×4 (03:43→20:16)
[2019-06-14] MEDS: PANTOPRAZOLE (EC) 40 MG TAB PO (05:21)
[2019-06-14] MEDS: IBUPROFEN 200 MG TAB PO (06:24)
[2019-06-14] MEDS: LACTULOSE 30ML CUP PO (09:00)
[2019-06-14] MEDS: METHYLNALTREXONE 12 MG/0.6 ML VIAL SC (09:09)
[2019-06-14] MEDS: PSYLLIUM 28% PACKET PO (09:14)
[2019-06-14] MEDS: AMLODIPINE 5 MG TAB PO ×2 (09:14→20:14)
[2019-06-14] MEDS: DOCUSATE SODIUM 100 MG CAP PO ×2 (09:14→20:12)
[2019-06-14] MEDS: HYDROCHLOROTHIAZIDE 25 MG TAB PO (09:15)
[2019-06-14] MEDS: LOSARTAN 25 MG TAB PO ×2 (09:15→20:14)
[2019-06-14] MEDS: ESCITALOPRAM 10 MG TAB PO (09:16)
[2019-06-14] MEDS: GABAPENTIN 100 MG CAP PO ×2 (09:16→20:13)
[2019-06-14] MEDS: POTASSIUM CHLORIDE (SR) 10 MEQ TAB PO ×2 (09:16→20:13)
[2019-06-14] MEDS: MECLIZINE 25 MG TAB PO (09:17)
[2019-06-14] MEDS: MULTIVITAMINS THERAPEUTIC TAB PO (09:17)
[2019-06-14] MEDS: ACYCLOVIR 800 MG TAB PO ×5 (09:44→20:18)
[2019-06-14] MEDS: DIMENHYDRINATE 50 MG PO (19:00)
[2019-06-14] MEDS: ATORVASTATIN 40 MG TAB PO (20:13)
[2019-06-14] MEDS: CYCLOBENZAPRINE 10 MG TAB PO (20:14)
[2019-06-14] MEDS: SENNA TAB PO (20:15)
[2019-06-14] MEDS: traZODone 50 MG TAB PO (20:15)
[2019-06-15] MEDS: HYDROmorphONE 2 MG TAB PO ×3 (01:13→10:07)
[2019-06-15] MEDS: HYDROCODONE/APAP (5/325) TAB PO ×3 (04:00→12:24)
[2019-06-15] MEDS: PANTOPRAZOLE (EC) 40 MG TAB PO (06:03)
[2019-06-15] MEDS: LOSARTAN 25 MG TAB PO (08:13)
[2019-06-15] MEDS: LACTULOSE 30ML CUP PO (08:13)
[2019-06-15] MEDS: DOCUSATE SODIUM 100 MG CAP PO (08:13)
[2019-06-15] MEDS: POTASSIUM CHLORIDE (SR) 10 MEQ TAB PO (08:14)
[2019-06-15] MEDS: PSYLLIUM 28% PACKET PO (08:14)
[2019-06-15] MEDS: HYDROCHLOROTHIAZIDE 25 MG TAB PO (08:14)
[2019-06-15] MEDS: ESCITALOPRAM 10 MG TAB PO (08:14)
[2019-06-15] MEDS: GABAPENTIN 100 MG CAP PO (08:14)
[2019-06-15] MEDS: MULTIVITAMINS THERAPEUTIC TAB PO (08:15)
[2019-06-15] MEDS: AMLODIPINE 5 MG TAB PO (08:15)
[2019-06-15] MEDS: METHYLNALTREXONE 12 MG/0.6 ML VIAL SC (08:15)
[2019-06-15] MEDS: ACYCLOVIR 800 MG TAB PO ×2 (08:22→12:12)
[2019-06-15] MEDS: IBUPROFEN 400 MG TAB PO (09:47)
[2019-06-15] MEDS: DIMENHYDRINATE 50 MG PO ×2 (12:12→12:14)
== END 2019-06-15 13:12 | DRG 561 ==
LOC: VRC 06-06 13:30
DX: Z47.89 Encounter for other orthopedic aftercare (principal); G89.18 Other acute postprocedural pain; Z98.1 Arthrodesis status; I10 Essential (primary) hypertension; E78.00 Pure hypercholesterolemia, unspecified; K21.9 Gastro-esophageal reflux disease without esophagitis; F32.9 Major depressive disorder, single episode, unspecified; H81.09 Meniere's disease, unspecified ear; G47.00 Insomnia, unspecified; K59.03 Drug induced constipation; T40.2X5A Adverse effect of other opioids, initial encounter; Y92.239 Unspecified place in hospital as the place of occurrence of the external cause; R23.8 Other skin changes; K59.00 Constipation, unspecified; D64.9 Anemia, unspecified
CPT/HCPCS: 80053; 81001; 82728; 83540; 85014; 85018; 85025; 87081; 87086; 92523; 97110; 97112; 97116; 97163; 97167; 97530; 97535